=== PATIENT | female | born 1955 | race Caucasian/White ===

== ENCOUNTER → 2017-04-17 | Outpatient (CLI) | payer BC ==
[~2017-04-17] MED LIST: ASCA500 PO; BIOT1CAP8 PO; CALCTAB5 PO; CHOL100010 PO; ECHI80CA PO; IBUP-1050 PO; MULT-506 PO; OMEG10007 PO; POME1CAP PO
--- NOTE | 2017-04-18 12:10 | MAMMOGRAPHY REPORT ---
BILATERAL DIGITAL SCREENING MAMMOGRAM TOMOSYNTHESIS WITH CAD: 04/17/2017 CLINICAL HISTORY: Routine screening. Patient has no complaints. TECHNIQUE: Breast tomosynthesis in addition to standard 2D mammography was performed. Current study was also evaluated with a Computer Aided Detection (CAD) system. COMPARISON: Comparison is made to exams dated: 03/08/2016 mammogram, 12/30/2013 mammogram, 01/05/2015 mamm ogram, 12/12/2011 mammogram, 12/06/2010 mammogram, and 11/30/2009 mammogram - [facility] . BREAST COMPOSITION: There are scattered areas of fibroglandular density in both breasts. FINDINGS: There is fluctuating nodularity bilaterally, most likely represent infiltrating cysts. Th ere are stable benign-appearing calcifications in the breasts. No new suspicious mass, architectural distortion or cluster of microcalcifications is seen. IMPRESSION: ACR BI-RADS CATEGORY 1: NEGATIVE There is no mammographic evidence of malignancy. A 1 year screening mammogram is recommended. The pa tient will receive written notification of the results. Approximately 10% of breast cancers are not detected with mammography. A negative mammographic report should not delay biopsy if a clinically suggestive mass is present. Janelle Ballesteros M.D. ay/:04/17/2017 16:00:11 Field Radio Technician: Kaylah BRYANT)(M), [facility] letter sent: Normal 1/2 BI-RADS Code: ACR BI-RADS Category 1: Negative
== END | disposition home or self-care (01) ==
LOC: C.MAMM 12:28
PROVIDERS: ATTEND Obstetrics & Gynecology
DX: Z12.31 Encounter for screening mammogram for malignant neoplasm of breast (principal)

== ENCOUNTER → 2018-05-26 | Outpatient (CLI) | payer BC ==
--- NOTE | 2018-05-26 13:55 | MAMMOGRAPHY REPORT ---
BILATERAL DIGITAL SCREENING MAMMOGRAM TOMOSYNTHESIS WITH CAD: 05/26/2018 CLINICAL HISTORY: Routine screening. Patient has no complaints. TECHNIQUE: Breast tomosynthesis in addition to standard 2D mammography was performed. Current study w as also evaluated with a Computer Aided Detection (CAD) system. COMPARISON: Comparison is made to exams dated: 04/17/2017 mammogram, 03/08/2016 mammogram, 01/05/2015 hector mogram, 12/30/2013 mammogram, 12/17/2012 mammogram, and 12/12/2011 mammogram - [facility]. BREAST COMPOSITION: There are scattered areas of fibroglandular density in both breasts. FINDINGS: No suspicious masses, calcifications, or areas of architectural distortion are noted in either breast . There has been no significant interval change compared to prior exams. Bilateral nodularity is not significantly changed, and likely represent cysts. Bilateral benign-appearing calcifications are als o not significantly changed. IMPRESSION: ACR BI-RADS CATEGORY 2: BENIGN There is no mammographic evidence of malignancy. A 1 year screening mammogram is recommended.( [id number]) The patient will receive written notification of the results. Some breast cancers are not detected with mammography. A negative mammographic report should not yousuf y biopsy if a clinically suggestive mass is present. Kary Marie M.D. /:05/26/2018 12:37:59 General Forecaster: Lis Solis, [facility] letter sent: Normal 1/2 BI-RADS Code: ACR BI-RADS Category 2: Benign
== END | disposition home or self-care (01) ==
LOC: C.MAMM 11:00
PROVIDERS: ATTEND Obstetrics & Gynecology
DX: Z12.31 Encounter for screening mammogram for malignant neoplasm of breast (principal)